=== PATIENT | male | born 1970 | race American Indian/Alaskan Native ===

== ENCOUNTER 2020-02-16 00:03 | Inpatient (IN) | payer OTHER ==
--- NOTE | 2020-02-16 01:07 | Emergency Department Report ---
ED General Adult HPI - General Chief complaint: Wound/Laceration Stated complaint: TOE ON BOTH FEET INFECTED Time Seen by Provider: 02/16/20 00:52 Source: patient Mode of arrival: Ambulatory Limitations: No Limitations - History of Present Illness Initial comments: 49-year-old obese -Burmese male with a known history of diabetes presents emerged department complaining of a reemergence of swelling pain and wound to the right toe which is gotten progressively worsening since November. He has been unable to follow-up with his primary care provider due to this coronavirus. During that time he states that the toes becoming progressively more swollen and the wound more warm more wiring with discharge. Currently the pain has intensified which is the reason for him coming to the emergency department tonight. He reports having a previous issue similar back in 2013 and 1 his initial problem began. -: Gradual Quality: dull Consistency: constant Improves with: none Worsens with: none Associated Symptoms: denies: confusion, chest pain, diaphoresis, loss of appetite, malaise, shortness of breath, syncope Treatments Prior to Arrival: none - Related Data Allergies Allergy/AdvReac Type Severity Reaction Status Date / Time No Known Allergies Allergy Unverified 02/16/20 00:11 ED Review of Systems ROS: Stated complaint: TOE ON BOTH FEET INFECTED Other details as noted in HPI Comment: All other systems reviewed and negative ED Past Medical Hx - Past Medical History Previous Medical History?: Yes Hx Diabetes: Yes Additional medical history: Takes Lisinopril for his Kidneys - Surgical History Past Surgical History?: No - Social History Smoking Status: Never Smoker Substance Use Type: None ED Physical Exam - General Limitations: No Limitations General appearance: alert, in no apparent distress - Head Head exam: Present: atraumatic, normocephalic - Eye Eye exam: Present: normal appearance - ENT ENT exam: Present: mucous membranes moist - Neck Neck exam: Present: normal inspection - Respiratory Respiratory exam: Present: normal lung sounds bilaterally. Absent: respiratory distress - Cardiovascular Cardiovascular Exam: Present: regular rate, normal rhythm. Absent: systolic murmur, diastolic murmur, rubs, gallop - GI/Abdominal GI/Abdominal exam: Present: soft, normal bowel sounds - Rectal Rectal exam: Present: deferred - Extremities Exam Extremities exam: Present: normal inspection, tenderness - Expanded Lower Extremity Exam Right Foot/Toe exam: Present: tenderness, erythema 1 - Ulcerative and eroded wound to plantar surface the foot with some surrounding redness and swelling - Back Exam Back exam: Present: normal inspection - Neurological Exam Neurological exam: Present: alert, oriented X3 - Psychiatric Psychiatric exam: Present: normal affect, normal mood - Skin Skin exam: Present: warm, dry, intact, normal color. Absent: rash ED Course Vital Signs 02/16/20 02/16/20 00:10 01:51 Temperature 98.9 F 99.0 F Pulse Rate 106 H 90 Respiratory 18 18 Rate Blood Pressure 135/91 Blood Pressure 135/78 [Left] O2 Sat by Pulse 99 98 Oximetry - Consultations Consultation #1: 02/16/20 02:29 Case was discussed with the hospitalist Dr. Bustillos who came down to have [id number] with Shayan. Plan is to admit the patient for IV antibiotics, infectious disease and surgery consult ED Medical Decision Making - Lab Data Result diagrams: 02/16/20 01:59 - Radiology Data Radiology results: report reviewed Referring Physician:KIARA COULTERPatient Name:SHAYAN BURKSPatient ID:[id number] of :[birth year]Sex:MaleAccession:[id number] Date:[id number] Status:Finalized Findings [facility] [address] [place] [address] XRay Report Signed Patient: SHAYAN BURKS R#: [id number] : 1970 Acct:[id number] Age/Sex: 49 / M ADM Date: 02/16/20 Loc: ED Attending Dr: Ordering Physician: DIAMOND MCMAHON Date of Service: 02/16/20 Procedure(s): XR foot 3+V RT Accession Number(s): [id number] cc: DIAMOND MCMAHON Fluoro Time In Minutes: EXAMINATION: Right foot radiograph, 3 views CLINICAL INFORMATION: Wound of the right great toe for one month COMPARISON: None. FINDINGS: There is focal soft tissue swelling and gas surrounding the great toe. There is a scalloped appearance of the distal phalanx of the great toe of indeterminate chronicity. Erosive cortical changes are noted involving the distal aspect of the proximal phalanx of the great toe. Mild to moderate bony degenerative changes of the other digits and midfoot are noted with a moderate amount of degenerative calcaneal spurring. IMPRESSION: 1. Abnormal appearance of the great toe with diffuse soft tissue gas and erosive changes of the proximal phalanx. Infectious process with possible osteomyelitis should be considered. Signer Name: Conchita Coto MD Signed: 02/16/2020 1:24 AM Workstation Name: [id number] Transcribed By: EB Dictated By: Conchita Coto MD Electronically Authenticated By: Conchita Coto MD Signed Date/Time: 02/16/20123 DD/ 9 TD/TT: Critical care attestation.: If time is entered above; I have spent that time in minutes in the direct care of this critically ill patient, excluding procedure time. ED Disposition Clinical Impression: Osteomyelitis Disposition: DC-09 OP ADMIT IP TO THIS HOSP Is pt being admited?: Yes Does the pt Need Aspirin: No Condition: Stable Referrals: PRIMARY CARE, [Primary Care Provider] - 3-5 Days
--- NOTE | 2020-02-16 01:29 | XRay Report ---
EXAMINATION: Right foot radiograph, 3 views CLINICAL INFORMATION: Wound of the right great toe for one month COMPARISON: None. FINDINGS: There is focal soft tissue swelling and gas surrounding the great toe. There is a scalloped appearance of the distal phalanx of the great toe of indeterminate chronicity. Erosive cortical naranjo ges are noted involving the distal aspect of the proximal phalanx of the great toe. Mild to moderate bony degenerative changes of the other digits and midfoot are noted with a moderate amount of degener ative calcaneal spurring. IMPRESSION: 1. Abnormal appearance of the great toe with diffuse soft tissue gas and erosive changes of the proxi mal phalanx. Infectious process with possible osteomyelitis should be considered. Signer Name: Conchita Coto MD Signed: 02/16/2020 1:24 AM Workstation Name: [id number]
[2020-02-16] MEDS ORDERED: CLINDAMYCIN 600 MG/50 mL 600 MG/50 ML BAG IV STA (01:54)
[2020-02-16 02:09] LABS: Basophils # (Auto) 0.1 K/mm3 (0.0-0.1); Basophils % (Auto) 0.5 % (0.0-1.8); Eosinophils # (Auto) 0.4 K/mm3 (0.0-0.4); Hematocrit 39.4 % (35.5-45.6); Hemoglobin 13.6 gm/dl (11.8-15.2); Lymphocytes # (Auto) 1.2 K/mm3 (1.2-5.4); Mean Corpuscular HGB Conc 35 % (32-34); Mean Corpuscular Volume 86 fl (84-94); Monocytes # (Auto) 1.3 K/mm3 (0.0-0.8); Monocytes % (Auto) 10.2 % (0.0-7.3); Red Blood Count 4.57 M/mm3 (3.65-5.03)
[2020-02-16 02:15] LABS: Platelet Count 330 K/mm3 (140-440)
[2020-02-16] MEDS ORDERED: PIPERACIL/TAZOBACTA 4.5/NS 100 4.5 GM/100 ML VIAL IV ONE (02:21)
[2020-02-16 02:32] LABS: Erythrocyte Sedimentation Rate 59 mm/Hr (0-20)
[2020-02-16 02:44] LABS: Alanine Aminotransferase 13 units/L (7-56); Albumin 3.7 g/dL (3.9-5); BUN/Creatinine Ratio 12; Blood Urea Nitrogen 13 mg/dL (9-20); Calcium 9.4 mg/dL (8.4-10.2); Hemolysis Index 24
[2020-02-16] MEDS ORDERED: VANCOMYCIN/NS 1 GM/250 ML 1 GM/250 ML BAG IV ONE (02:48)
[2020-02-16] MEDS ORDERED: ONDANSETRON 4 MG/2 ML INJ IV PRN (02:50)
[2020-02-16] MEDS ORDERED: ACETAMINOPHEN 325 MG TAB PO PRN (02:50)
[2020-02-16] MEDS ORDERED: MORPHINE 2 MG/1 ML INJ IV PRN (02:50)
[2020-02-16] MEDS ORDERED: DEXTROSE 50% IN WATER (25GM) 50 ML SYRINGE IV PRN (02:50)
[2020-02-16] MEDS ORDERED: MAGNESIUM HYDROXIDE (MOM) ORAL LIQD UDC PO PRN (02:50)
[2020-02-16] MEDS ORDERED: SODIUM CHLORIDE 0.9% 1000 ML 1,000 ML IV SCH (03:00)
[2020-02-16] MEDS ORDERED: VANCOMYCIN PHARMACY TO DOSE IV SCH (03:00)
[2020-02-16] MEDS ORDERED: VANCOMYCIN 2,000 MG in SODIUM CHLORIDE 0.9% 500 ML 500 ML IV ONE (03:00)
--- NOTE | 2020-02-16 03:32 | History and Physical Report ---
History of Present Illness Date of examination: 02/16/20 Date of admission: 02/16/2020 Chief complaint: Right foot wound History of present illness: 49-year-old -Gabonese male with known history of diabetes mellitus presenting to the emergency room complaining of right toe wound which is gotten worse since November 2019. He has noticed that his right big toe has become progressively swollen and wound has been having a discharge. He has been following up with his primary care physician in the past but due to the coronavirus pandemic he has not been able to follow-up lately. Has had pain in his right foot and toe decided to report to the emergency room. Denies any fever or chills, no nausea vomiting, no abdominal pain or diarrhea. Denies any chest pain or shortness of breath. He denies any sick contacts or recent travel. He denies any recent trauma to the right foot. Work-up in the emergency room including radiological exam shows changes with possible osteomyelitis. Past History Past Medical History: diabetes Past Surgical History: No surgical history Social history: no significant social history Family history: no significant family history Medications and Allergies Allergies Allergy/AdvReac Type Severity Reaction Status Date / Time No Known Allergies Allergy Verified 02/16/20 02:49 Active Meds: Active Medications Acetaminophen (Tylenol) 650 mg PO Q4H PRN PRN Reason: Pain MILD(1-3)/Fever >100.5/KELLY Dextrose (D50w (25gm) Syringe) 50 ml IV Q30MIN PRN; Protocol PRN Reason: Hypoglycemia Vancomycin HCl 2,000 mg/ (Sodium Chloride) 540 mls @ 250 mls/hr IV ONCE ONE Stop: 02/16/20 05:09 Sodium Chloride (Nacl 0.9% 1000 Ml) 1,000 mls @ 125 mls/hr IV DIRECT YOSEF Piperacillin Sod/Tazobactam Sod (Zosyn/Ns 4.5gm/100ml) 4.5 gm in 100 mls @ 200 mls/hr IV Q8HR YOSFE; Protocol Insulin Human Lispro (Humalog) 0 unit SUB-Q ACHS YOSEF; Protocol Magnesium Hydroxide (Milk Of Magnesia) 30 ml PO Q4H PRN PRN Reason: Constipation Morphine Sulfate (Morphine) 2 mg IV Q4H PRN PRN Reason: Pain, Moderate (4-6) Ondansetron HCl (Zofran) 4 mg IV Q8H PRN PRN Reason: Nausea And Vomiting Sodium Chloride (Sodium Chloride Flush Syringe 10 Ml) 10 ml IV BID YOSEF Sodium Chloride (Sodium Chloride Flush Syringe 10 Ml) 10 ml IV PRN PRN PRN Reason: LINE FLUSH Review of Systems Constitutional: no fever, no chills Cardiovascular: no chest pain, no palpitations Respiratory: no cough, no shortness of breath Gastrointestinal: no abdominal pain, no nausea, no vomiting, no diarrhea Genitourinary Male: no dysuria, no hematuria, no urinary frequency, no urinary hesitancy Musculoskeletal: no neck pain, no low back pain Integumentary: no rash, no pruritis Neurological: no headaches, no confusion Psychiatric: no anxiety, no depression Exam - Constitutional Vitals: Temp Pulse Resp BP Pulse Ox 99.0 F 90 18 135/78 98 02/16/20 01:51 02/16/20 01:51 02/16/20 01:51 02/16/20 01:51 02/16/20 01:51 General appearance: Present: no acute distress, well-nourished - EENT Eyes: Present: PERRL, EOM intact ENT: hearing intact, clear oral mucosa, dentition normal - Neck Neck: Present: supple, normal ROM - Respiratory Respiratory effort: normal Respiratory: bilateral: CTA - Cardiovascular Rhythm: regular Heart Sounds: Present: S1 & S2 - Extremities Extremities: no ischemia, pulses intact, pulses symmetrical, No edema, Full ROM Peripheral Pulses: within normal limits - Abdominal General gastrointestinal: Present: soft, non-tender, non-distended - Integumentary Integumentary: Present: clear, warm, dry - Musculoskeletal Musculoskeletal: strength equal bilaterally, other (Wound on the plantar aspect of the right big toe, no obvious discharge, no redness) - Psychiatric Psychiatric: appropriate mood/affect, intact judgment & insight - Neurologic Neurologic: CNII-XII intact, moves all extremities Results - Labs CBC & Chem 7: 02/16/20 01:59 02/16/20 01:59 Labs: Abnormal lab results 02/16/20 02/16/20 02/16/20 Range/Units 01:59 01:59 01:59 WBC 12.9 H (4.5-11.0) K/mm3 MCHC 35 H (32-34) % RDW 13.0 L (13.2-15.2) % Lymph % (Auto) 9.0 L (13.4-35.0) % [place] % (Auto) 10.2 H (0.0-7.3) % [place] # 1.3 H (0.0-0.8) K/mm3 Seg Neutrophils % 77.3 H (40.0-70.0) % Seg Neutrophils # 10.0 H (1.8-7.7) K/mm3 Sodium 132 L (137-145) mmol/L Chloride 89.3 L (98-107) mmol/L Glucose 453 H (75-100) mg/dL Alkaline Phosphatase 167 H (35-129) units/L C-Reactive Protein 8.70 H (0.00-1.30) mg/dL Albumin 3.7 L (3.9-5) g/dL Assessment and Plan - Patient Problems (1) Osteomyelitis Current Visit: Yes Status: Acute Plan to address problem: We will place a consult to general surgery and wound care team for evaluation. Patient commenced on empiric IV antibiotics. (2) Diabetes mellitus Current Visit: Yes Status: Acute Plan to address problem: We will continue routine home medications and also monitor Accu-Cheks closely. (3) DVT prophylaxis Current Visit: Yes Status: Acute Plan to address problem: Patient placed on subcutaneous heparin. (4) Full code status Current Visit: Yes Status: Acute
[2020-02-16] MEDS: INSULIN LISPRO 100 UNIT/ML SUB-Q SCH ×2 (07:30→14:04)
--- NOTE | 2020-02-16 09:13 | Consultation ---
Past History Past Medical History: diabetes Past Surgical History: No surgical history Social history: no significant social history Family history: no significant family history Medications and Allergies Allergies Allergy/AdvReac Type Severity Reaction Status Date / Time No Known Allergies Allergy Verified 02/16/20 02:49 Active Meds: Active Medications Acetaminophen (Tylenol) 650 mg PO Q4H PRN PRN Reason: Pain MILD(1-3)/Fever >100.5/KELLY Dextrose (D50w (25gm) Syringe) 50 ml IV Q30MIN PRN; Protocol PRN Reason: Hypoglycemia Heparin Sodium (Porcine) (Heparin) 5,000 unit SUB-Q Q8HR YOSEF Sodium Chloride (Nacl 0.9% 1000 Ml) 1,000 mls @ 125 mls/hr IV DIRECT YOSEF Piperacillin Sod/Tazobactam Sod (Zosyn/Ns 4.5gm/100ml) 4.5 gm in 100 mls @ 200 mls/hr IV Q8HR YOSEF; Protocol Vancomycin HCl 1,750 mg/ (Sodium Chloride) 535 mls @ 333.333 mls/hr IV Q12H YOSEF Insulin Human Lispro (Humalog) 0 unit SUB-Q ACHS YOSEF; Protocol Magnesium Hydroxide (Milk Of Magnesia) 30 ml PO Q4H PRN PRN Reason: Constipation Morphine Sulfate (Morphine) 2 mg IV Q4H PRN PRN Reason: Pain, Moderate (4-6) Ondansetron HCl (Zofran) 4 mg IV Q8H PRN PRN Reason: Nausea And Vomiting Sodium Chloride (Sodium Chloride Flush Syringe 10 Ml) 10 ml IV BID YOSEF Sodium Chloride (Sodium Chloride Flush Syringe 10 Ml) 10 ml IV PRN PRN PRN Reason: LINE FLUSH Exam Vital Signs Temp Pulse Resp BP Pulse Ox 98.9 F 106 H 18 135/91 99 02/16/20 00:10 02/16/20 00:10 02/16/20 00:10 02/16/20 00:10 02/16/20 00:10 Results - Labs 02/16/20 01:59 02/16/20 01:59 Abnormal lab results 02/16/20 02/16/20 02/16/20 Range/Units 01:59 01:59 01:59 WBC 12.9 H (4.5-11.0) K/mm3 MCHC 35 H (32-34) % RDW 13.0 L (13.2-15.2) % Lymph % (Auto) 9.0 L (13.4-35.0) % [place] % (Auto) 10.2 H (0.0-7.3) % [place] # 1.3 H (0.0-0.8) K/mm3 Seg Neutrophils % 77.3 H (40.0-70.0) % Seg Neutrophils # 10.0 H (1.8-7.7) K/mm3 Sodium 132 L (137-145) mmol/L Chloride 89.3 L (98-107) mmol/L Glucose 453 H (75-100) mg/dL Hemoglobin A1c (4-6) % Alkaline Phosphatase 167 H (35-129) units/L C-Reactive Protein 8.70 H (0.00-1.30) mg/dL Albumin 3.7 L (3.9-5) g/dL 02/16/20 Range/Units Unknown WBC (4.5-11.0) K/mm3 MCHC (32-34) % RDW (13.2-15.2) % Lymph % (Auto) (13.4-35.0) % [place] % (Auto) (0.0-7.3) % [place] # (0.0-0.8) K/mm3 Seg Neutrophils % (40.0-70.0) % Seg Neutrophils # (1.8-7.7) K/mm3 Sodium (137-145) mmol/L Chloride (98-107) mmol/L Glucose (75-100) mg/dL Hemoglobin A1c 18.6 H (4-6) % Alkaline Phosphatase (35-129) units/L C-Reactive Protein (0.00-1.30) mg/dL Albumin (3.9-5) g/dL Diabetes panel 02/16/20 02/16/20 Range/Units 01:59 Unknown Sodium 132 L (137-145) mmol/L Potassium 4.3 (3.6-5.0) mmol/L Chloride 89.3 L (98-107) mmol/L Carbon Dioxide 25 (22-30) mmol/L BUN 13 (9-20) mg/dL Creatinine 1.1 (0.8-1.5) mg/dL Glucose 453 H (75-100) mg/dL Hemoglobin A1c 18.6 H (4-6) % Calcium 9.4 (8.4-10.2) mg/dL AST 15 (5-40) units/L ALT 13 (7-56) units/L Alkaline Phosphatase 167 H (35-129) units/L Total Protein 7.4 (6.3-8.2) g/dL Albumin 3.7 L (3.9-5) g/dL Calcium panel 02/16/20 Range/Units 01:59 Calcium 9.4 (8.4-10.2) mg/dL Albumin 3.7 L (3.9-5) g/dL Pituitary panel 02/16/20 Range/Units 01:59 Sodium 132 L (137-145) mmol/L Potassium 4.3 (3.6-5.0) mmol/L Chloride 89.3 L (98-107) mmol/L Carbon Dioxide 25 (22-30) mmol/L BUN 13 (9-20) mg/dL Creatinine 1.1 (0.8-1.5) mg/dL Glucose 453 H (75-100) mg/dL Calcium 9.4 (8.4-10.2) mg/dL Adrenal panel 02/16/20 Range/Units 01:59 Sodium 132 L (137-145) mmol/L Potassium 4.3 (3.6-5.0) mmol/L Chloride 89.3 L (98-107) mmol/L Carbon Dioxide 25 (22-30) mmol/L BUN 13 (9-20) mg/dL Creatinine 1.1 (0.8-1.5) mg/dL Glucose 453 H (75-100) mg/dL Calcium 9.4 (8.4-10.2) mg/dL Total Bilirubin 0.30 (0.1-1.2) mg/dL AST 15 (5-40) units/L ALT 13 (7-56) units/L Alkaline Phosphatase 167 H (35-129) units/L Total Protein 7.4 (6.3-8.2) g/dL Albumin 3.7 L (3.9-5) g/dL
--- NOTE | 2020-02-16 09:22 | Event Note ---
Date: 02/16/20 Pt seen and evaluated. No emergent surgical issue. I believe the patient would benefit from consultation with Dr. Pham as he may require amputation of the toe. I contacted Dr. Pham this morning. He has agreed to see the patient. I will change the consult to him. Please call with questions.
[2020-02-16] MEDS ORDERED: PIPERACIL/TAZOBACTA 4.5/NS 100 4.5 GM/100 ML VIAL IV SCH (12:00)
--- NOTE | 2020-02-16 13:05 | Discharge Summary ---
Providers - Providers Date of Admission: 02/16/20 07:31 Attending physician: ELI BUTT 02/16/20 02:50 Consult to Physician [CONS] Routine Comment: Consulting Provider: ADINA ENGLE Physician Instructions: Reason For Exam: right foot osteomyelitis 02/16/20 02:51 Consult to Dietitian/Nutrition [CONS] Routine Physician Instructions: Reason For Exam: Reason for Consult: Diet education 02/16/20 02:58 Consult to Wound/ET Nurse [CONS] Routine Reason For Exam: wound eval of right foot Primary care physician: DIESEL RET[employer]IT DESIGNER Hospitalization Condition: Stable Pertinent studies: Right foot x-ray: Right great toe soft tissue infection Hospital course: 49-year-old -Lao male with known history of diabetes mellitus presenting to the emergency room complaining of right toe wound. Patient seen and evaluated in the emergency department. Lab and imaging studies reviewed. Patient underwent x-ray of the right foot which shows soft tissue in the right great toe. General surgery team consulted in ED. Patient seen and evaluated by surgical service. Patient convalesced well during hospital course. Patient treated with IV antibiotic therapy with improvement in symptoms. Patient found to not require surgical intervention. Surgical team recommends outpatient follow-up with wound care clinic. Patient medically optimized and back to usual state of health. Patient seen and evaluated prior to discharge with no significant new physical exam findings. Patient discharged home instructed to follow-up with wound clinic as directed. Patient discharged home on oral antibiotic therapy. Patient instructed to return to ED if worsening symptoms. 35 minutes dedicated to patient discharge and coordination of care. Disposition: - TO HOME OR SELFCARE - Discharge Diagnoses (1) Diabetic foot ulcer Status: Acute (2) Diabetes mellitus Status: Acute Core Measure Documentation - Palliative Care Palliative Care/ Comfort Measures: Not Applicable - Core Measures Any of the following diagnoses?: none Exam - Constitutional Vitals: Temp Pulse Resp BP Pulse Ox 98.3 F 88 20 130/83 98 02/16/20 07:46 02/16/20 07:46 02/16/20 07:46 02/16/20 07:46 02/16/20 07:46 General appearance: Present: no acute distress, well-nourished - EENT Eyes: Present: PERRL ENT: hearing intact, clear oral mucosa - Neck Neck: Present: supple, normal ROM - Respiratory Respiratory effort: normal Respiratory: bilateral: CTA - Cardiovascular Heart Sounds: Present: S1 & S2. Absent: rub, click - Extremities Extremities: pulses symmetrical, No edema Extremity abnormal: other (Right great toe erythema) Peripheral Pulses: within normal limits - Abdominal General gastrointestinal: Present: soft, non-tender, non-distended, normal bowel sounds Male genitourinary: Present: normal - Integumentary Integumentary: Present: clear, warm, dry - Musculoskeletal Musculoskeletal: gait normal, strength equal bilaterally - Psychiatric Psychiatric: appropriate mood/affect, intact judgment & insight - Neurologic Neurologic: CNII-XII intact, moves all extremities Plan Activity: advance as tolerated Diet: low fat, low cholesterol, diabetic Wound: per your surgeon's advice Follow up with: PRIMARY CARE,MD [Primary Care Provider] - 3-5 Days Prescriptions: Clindamycin [Clindamycin CAP] 300 mg PO Q8H #30 cap Syringe-Needle,Insulin,0.5 ml [Insulin Syringe/Needle 0.5 ML] 1 each MC TID #1 box Insulin NPH Hum/Reg Insulin Hm [Novolin 70-30 100 Unit/ml Vial] 18 unit SQ TIDAC #1 vial
[2020-02-16 13:08] VITALS: BP 102/64
[2020-02-16] MEDS ORDERED: HEPARIN 5,000 UNIT/1 ML VIAL SUB-Q SCH (14:00)
[2020-02-16] MEDS ORDERED: VANCOMYCIN 1,750 MG in SODIUM CHLORIDE 0.9% 500 ML 500 ML IV SCH (16:00)
== END 2020-02-16 17:06 | disposition home or self-care (01) | DRG 638 ==
LOC: ED 00:03 → SUATTDRO 00:03 → IMCU 07:31
PROVIDERS: ADMIT Internal Medicine Geriatric Medicine; ATTEND Internal Medicine
DX: E11.69 Type 2 diabetes mellitus with other specified complication (principal); M86.9 Osteomyelitis, unspecified; E66.9 Obesity, unspecified; Z68.37 Body mass index [BMI] 37.0-37.9, adult
CPT/HCPCS: 36415; 80053; 82962; 83036; 85025; 85652; 86140; 87040; G0378; J1815; J2543; J3370; J7040

== ENCOUNTER 2020-02-29 10:03 | Outpatient (CLI) | payer OTHER ==
[2020-02-29] MEDS ORDERED: LIDOCAINE (4%) 40 MG/ML TOPICAL SOLN 50 ML BOTTLE TP ONE (10:50)
[2020-02-29] MEDS ORDERED: SILVER NITRATE APPLICATOR 1 EA TP ONE (12:00)
== END 2020-02-29 10:04 | disposition home or self-care (01) ==
LOC: WOUND 10:03
PROVIDERS: ATTEND Surgery
DX: E11.621 Type 2 diabetes mellitus with foot ulcer (principal); L97.521 Non-pressure chronic ulcer of other part of left foot limited to breakdown of skin; L97.511 Non-pressure chronic ulcer of other part of right foot limited to breakdown of skin; L84 Corns and callosities; E11.69 Type 2 diabetes mellitus with other specified complication; M86.9 Osteomyelitis, unspecified; Z79.4 Long term (current) use of insulin
CPT/HCPCS: 99204; G0463

== ENCOUNTER 2020-03-01 14:26 | Outpatient (CLI) | payer OTHER | END 2020-03-01 14:27 | disposition home or self-care (01) | LOC: XRAY 14:26 | DX: E11.69 Type 2 diabetes mellitus with other specified complication (principal); M86.8X7 Other osteomyelitis, ankle and foot ==